=== PATIENT | male | born 1955 | race African-American/Black ===

== ENCOUNTER 2017-05-29 11:00 | Emergency (ER) | payer MEDICAID, SELFPAY ==
[2017-05-29 11:01] VITALS: BP 136/68; PULSE 87; RESP 14; TEMP 36.4; O2SAT 99; BMI 30.6
--- NOTE | 2017-05-29 11:06 | NURSING ---
NO LW OR POA
--- NOTE | 2017-05-29 11:23 | ED.DCSUM_ITS ---
- ER Visit Summary Date of Service: 05/29/17 Chief Complaint: Onset of facial numbness and weakness 1 week ago History of Present Illness: The patient is a 61 M has history of hypertension on lisinopril presents with left-sided facial numbness and weakness that started last week. He denies headache. He denies double vision, blurred vision loss of vision. Denies pain in his ear. States he had a dental infection involving the jaw on the left side. He denies any trouble with speech or swallowing. He denies paresthesia, anesthesia moderates of the extremities. He denied any trouble walking or with balance. Physical Examination: Blood pressure slightly elevated 136/68. Patient has loss of wrinkles forehead and decreased blinking on the left with facial droop on the left. There is no discomfort push on the tragus or pulling on the auricle. There is no lesions in the auditory canal. TM normal. No TMJ tenderness. There is no trismus. There is no facial swelling, erythema or warmth. Pupils equal round reactive. Extraocular muscles are intact. Uvula is midline. There is no deviation of tongue with protrusion. The soft palate rises symmetrically. There is no carotid bruit. He is alert and oriented ?3. Motor is 5/5. Sensations intact. He does have findings consistent with Vallejo's palsy. Gait was observed and he is able to walk on heels toes and tandem gait. Cerebellar testing is normal. Test Results: None Emergency Department Course and Treatment: First dose of prednisone and patient was informed of his diagnosis Treatment Plan: Prescription for burst of prednisone Disposition: Discharge to home with follow-up at [facility] where he receives his care Impression: Vallejo's palsy left side This note was generated with [employer] dictation software. It may contain incorrect words, spelling, and punctuation that were not noted in review of the chart prior to signing ED Disposition - Plan for ED Patient: Disposition: Home or Assisted Living Chief Complaint: Neuro S/Sx Instructions: ED [place] Palsy Prescriptions: Erythromycin Ophthalmic 1 applic LEFT EYE QHS #1 tube Prednisone 40 mg PO DAILY #10 tab Referrals: Anjali Tubbs [Primary Care Provider] - 5-7 Days
== END 2017-05-29 11:43 | disposition home or self-care (01) ==
PROVIDERS: Emergency Provider Emergency Medicine
DX: G51.0 Bell's palsy (principal); I10 Essential (primary) hypertension; Z87.898 Personal history of other specified conditions; Z72.89 Other problems related to lifestyle; Z79.899 Other long term (current) drug therapy; Z72.0 Tobacco use
CPT/HCPCS: 99282

== ENCOUNTER 2020-11-22 10:26 | Emergency (ER) | payer SELFPAY ==
[2020-11-22 10:27] VITALS: BP 168/110; PULSE 75; RESP 18; TEMP 36.6; O2SAT 99; BMI 25.1
--- NOTE | 2020-11-22 11:01 | EDS_ITS ---
HPI History of Present Illness Chief Complaint: Back Informant: patient Onset/Context/Timing Onset: Weeks Context: Gradual Onset Current Severity: Moderate Maximum Severity: Severe Worsened by: improves with Movement Associated Symptoms Associated Symptoms: Radiation to Left Leg; Negative for Numbness, Tingling and Abdominal Pain Narrative Narrative: Patient presents secondary left back pain shooting down his left leg. Patient states symptoms been ongoing for little over a month, but recently became much more severe. He denies any injury. No fevers or chills. No difficulty with urinating or bowel movements. Patient states he has tried some Advil and some [id number]-[id number] sciatic nerve medication without improvement. He has not seen his physician for this. [facility] Medical History Arthritis Hypertension Home Medications lisinopril 20 mg PO DAILY 05/30/16 [History Last Taken 12/13/16 07:00] diphenhydramine HCl [Benadryl Allergy] 25 mg PO QHS 12/12/16 [History Last Taken Unknown] fexofenadine [Yara Allergy] 180 mg PO PRN PRN 12/12/16 [History Last Taken Unknown] [id number]-maboxbdve [Prevpac Patient Pack] See Protocol PO BID 10 Days combo..pkg 12/13/16 [Rx Last Taken Unknown] erythromycin 1 applic LEFT EYE QHS #1 tube 05/29/17 [Rx Last Taken Unknown] prednisone 40 mg PO DAILY #10 tab 05/29/17 [Rx Last Taken Unknown] cyclobenzaprine 10 mg PO BID PRN #10 tab 11/22/20 [Rx Last Taken Unknown] hydrocodone-acetaminophen 1 tab PO Q6H PRN 3 Days #10 tab 11/22/20 [Rx Last Taken Unknown] naproxen [Naprosyn] 500 mg PO BID PRN #20 tab 11/22/20 [Rx Last Taken Unknown] prednisone 60 mg PO DAILY #15 tab 11/22/20 [Rx Last Taken Unknown] Allergy/AdvReac Type Severity Reaction Status Date / Time aspirin AdvReac Nausea Verified 05/29/17 11:04 Social History Smoking Status: Current every day smoker ROS ROS ED Constitutional Constitutional ED: Denies chills or fever(s) Eyes Eyes: Denies change in vision ENT ENT ED: Denies sore throat Cardiovascular Cardiovascular: Denies chest pain Respiratory/Chest Respiratory/Chest: Denies cough or dyspnea Gastrointestinal Gastrointestinal: Denies abdominal pain, diarrhea, nausea or vomiting Genitourinary Genitourinary ED: Denies dysuria Musculoskeletal Musculoskeletal: Reports back pain Integumentary Denies rash Neurologic Neurologic: Denies headache(s), paresthesias or weakness Psychiatric Psychiatric: Denies anxiety or depression Endocrine Endocrinology: Denies polydipsia or polyuria Allergic/Immunologic Allergic/Immunologic ED: Denies urticaria EXAM Physical Exam Const Vital Signs: 11/22/20 10:27 Temperature 97.8 F Temperature Source Temporal Pulse Rate 75 Respiratory Rate 18 Blood Pressure 168/110 H Blood Pressure Mean 129 Pulse Ox 99 Oxygen Delivery Method Room Air Positive well nourished and well developed General Appearance ED: well developed HEENT Reports moist mucous membranes Eyes PERRL and EOMs intact bilaterally Neck supple Resp normal respiratory effort and clear to auscultation bilaterally Cardio regular rate and regular rhythm GI normal to inspection, nondistended, normoactive bowel sounds, soft to palpation and no masses Back/Spine normal to inspection and no thoracic nor lumbar tenderness Back/Spine Narrative: Tenderness in the left sciatic notch. No midline thoracic or lumbar tenderness. Extremity normal to inspection Neuro oriented x3 and no sensory deficits noted Neuro Narrative: Straight leg raise negative. Sensorium / Orientation: alert Motor Exam: strength 5/5 throughout Psych mental status grossly normal Skin no rashes or lesions noted MDM MDM MDM Narrative Medical decision making narrative: Patient be given a dose of Royal, prednisone, Flexeril here. I do not feel imaging is going to be beneficial. Treatment and Re-Evaluation Comments:: Patient be given prescriptions for Royal, Naprosyn, prednisone, Flexeril. He is advised to follow-up with his physicians. Discharge Plan Triage Chief Complaint: Back ED Provider: Mile Avery Dx/Rx/DC Orders Clinical Impression: Sciatica Instructions: ED Sciatica Prescriptions: New naproxen [Naprosyn] 500 mg tablet 500 mg PO BID PRN (Reason: pain) Qty: 20 RF: 0 cyclobenzaprine 10 mg tablet 10 mg PO BID PRN (Reason: muscle spasm) Qty: 10 RF: 0 prednisone 20 mg tablet 60 mg PO DAILY Qty: 15 RF: 0 hydrocodone-acetaminophen 5-325 mg tablet 1 tab PO Q6H PRN (Reason: pain) 3 Days Qty: 10 RF: 0 No Action lisinopril 20 MG tablet 20 mg PO DAILY RF: 0 fexofenadine [Yara Allergy] 180 MG tablet 180 mg PO PRN PRN (Reason: Allergies) RF: 0 diphenhydramine HCl [Benadryl Allergy] 25 MG tablet 25 mg PO QHS RF: 0 [id number]-wrpmacsyhpj-hpqawfspw [Prevpac] 1 EACH combo pack See Protocol ea PO BID 10 Days RF: 0 prednisone 20 MG tablet 40 mg PO DAILY Qty: 10 RF: 0 erythromycin 1 GM ointment 1 applic LEFT EYE QHS Qty: 1 RF: 0 Primary Care Provider: Anjali Wilson Referrals: [facility] Anjali Serrato [Primary Care Provider] - 1-2 Weeks Disposition Disposition: Home, Self Care
[2020-11-22] MEDS: HYDROcodone Bitartrate/Apap 5/325 Tablet PO (11:11)
[2020-11-22] MEDS: predniSONE 20 MG Tablet 60 MG PO (11:11)
[2020-11-22] MEDS: cycloBENZAPRine HCl 10 MG Tablet PO (11:12)
[2020-11-22 11:19] VITALS: BP 149/87; PULSE 82; RESP 16; O2SAT 98
== END 2020-11-22 11:20 | disposition home or self-care (01) ==
LOC: ED 11:12
PROVIDERS: Emergency Provider Emergency Medicine
DX: M54.42 Lumbago with sciatica, left side (principal); I10 Essential (primary) hypertension; M19.90 Unspecified osteoarthritis, unspecified site; Z79.899 Other long term (current) drug therapy; F17.200 Nicotine dependence, unspecified, uncomplicated
CPT/HCPCS: 99283